=== PATIENT | female | born 1995 | race Caucasian/White ===

== ENCOUNTER 2019-12-20 20:18 | Emergency (ER) | payer SELFPAY ==
[2019-12-20 20:24] VITALS: BP 155/102; PULSE 102; RESP 18; TEMP 36.8; O2SAT 98
--- NOTE | 2019-12-20 20:37 | PC.NURSE ---
patient states she was making a sneeze guard to stand over the desk at work when she accidentally drilled her thumb with and electric drill. Patient is not sure how far in the drill went and patient states she has bled through 8 bandaids in an hour. Patients thumb is not bleeding at this time unless manipulated.
[2019-12-20 20:38] VITALS: BP 133/85; PULSE 97; RESP 16; O2SAT 98
--- NOTE | 2019-12-20 20:44 | XR_ITS ---
WS: [id number] HAND LEFT TECHNIQUE: 3 views of the left hand CLINICAL INFORMATION: puncture wound to left thumb COMPARISON: None. FINDINGS: Normal metacarpals. Normal MCP joint. Metacarpal heads are normal in appearance. Normal PIP and DIP j oints. No evidence of acute fracture or dislocation. Radiocarpal joint: Normal. Carpal bones: Normal. XR/XR hand LT min 3V* [id number] IMPRESSION: Normal left hand.
--- NOTE | 2019-12-20 20:46 | W.ED.WOUNDLC ---
HPI - Wound/Laceration General: Chief Complaint: Wound/Laceration Stated Complaint: thumb lac Time Seen by Provider: 12/20/19 20:24 History of Present Illness: HPI narrative: Patient is a 24-year-old female who comes into the ED with a wound to her left thumb. Injury occurred today while at work. Patient was using a drill and accidentally drilled into her left thumb. She was unaware of how deep the drill went, but did complain of a shooting pain up her hand and into her arm when the incident occurred. She has not had any shooting pain up her left arm since injury. She has used multiple bandages to try to stop the bleeding. She has full movement of her left thumb and just has some tenderness around the wound. She is not taking anything for pain and currently rates the pain about a 5-6 out of 10. She does not want anything for pain while here in the ED. She was on sure of when her last tetanus shot was. Associated symptoms: Denies chills, fever(s), nausea or vomiting Review of Systems Const: Denies: fever, chills or fatigue Eyes: Denies: change in vision or eye discomfort ENMT: Denies: throat pain, painful swallowing, nasal discharge or nasal congestion Card: Denies: chest pain, palpitations, edema, swelling of feet/ankles, shortness of breath on exertion or shortness of breath when lying down Resp: Denies: shortness of breath, productive cough or non-productive cough GI: Denies: abdominal pain, nausea, vomiting, diarrhea, constipation or blood in stool : Denies: flank pain, painful urination or blood in urine Musc: Denies: neck pain, back pain or extremity swelling Skin/Breast: Reports: new lesion (puncture wound to left thumb); Denies: rash Neuro: Denies: headache, numbness in extremities or weakness in extremities PFS ED PFSH: Social History Smoking and tobacco status: never smoked Physical Exam Const: COMMON NORMALS: no apparent distress, oriented x3 and alert GENERAL APPEARANCE: cooperative and comfortable; not in distress HENMT: COMMON NORMALS: normocephalic HEAD & SCALP: normocephalic MOUTH: oral and palatal mucosa normal THROAT: posterior oropharynx normal and uvula midline Neck/C-Spine: COMMON NORMALS: supple GENERAL: Yes normal visual inspection Resp: COMMON NORMALS: normal respiratory effort, no retractions, no use of accessory muscles and clear to auscultation bilaterally AUSCULTATION: clear to auscultation bilaterally Cardio: COMMON NORMALS: regular rate, regular rhythm, S1 normal heart sound, S2 normal heart sound, no gallops, no clicks, no murmurs and peripheral pulses 2+ throughout RATE: regular rate RHYTHM: regular rhythm HEART SOUNDS: S1 normal and S2 normal PERIPHERAL PULSES: pulses 2+ throughout GI: COMMON NORMALS: normal to inspection, nondistended, normoactive bowel sounds, soft to palpation, non-tender and no masses PALPATION: Yes soft : COMMON NORMALS: Yes no CVA tenderness BLADDER/KIDNEY EXAM: Yes no CVA tenderness Back/Pelvis: COMMON NORMALS: no CVA tenderness Extremity: COMMON NORMALS: normal capillary refill GENERAL: Yes normal exam except as noted LEFT UPPER EXTREMITY: Yes hand & digits (3 mm puncture wound on dorsal side of left thumb. Nail is not involved) Left hand and digits: Yes inspection (No erythema, warmth or active bleeding on left thumb wound.), Yes palpation (Tender around puncture wound on left thumb.), Yes ROM (full), Yes neurovascular exam (intact--normal cap refill to left thumb) and Yes tendon exam (full movement) Neuro: COMMON NORMALS: oriented x3 and moves all extremities SENSORIUM/ORIENTATION: Yes alert Skin: TRAUMA: puncture (3 mm puncture wound on the dorsal side of left thumb. No active bleeding no erythema or warmth.) Course Vital Signs: Vital signs: Vital Signs Temperature 98.3 F 12/20/19 20:24 Pulse Rate 84 12/20/19 21:20 Respiratory Rate 16 12/20/19 21:20 Blood Pressure 142/83 12/20/19 21:20 Pulse Oximetry 98 12/20/19 21:20 MDM - Wound/Laceration MDM Narrative: Medical decision making narrative: Patient is a 24-year-old female who comes to the ED with a puncture wound to the left thumb. Left hand x-ray was performed and showed no acute fracture or bony abnormalities. Patient's puncture wound was irrigated and cleansed and then bacitracin and bandage was placed on wound. Patient was given an updated tetanus shot today. She was also given a dose of Augmentin as a prophylactic antibiotic. She was sent home with a prophylactic antibiotic prescription of Augmentin. Patient was told about signs of infection to look for. She was told to clean, apply triple antibiotic ointment and bandage wound daily. She will follow-up with her PCP in 5 to 7 days for reevaluation. Patient understood and agreed with plan. Imaging Data^: Xray Ortho: Attestation: I personally reviewed and interpreted this imaging study as follows: My impression: left hand xray-no acute fractures or kristin abnormalities. pending final radiology report. Discharge Plan Discharge Patient Disposition: Home, Self-Care Clinical Impression: Puncture wound Condition: Stable Prescriptions: New Augmentin 500-125 mg tablet 1 tab PO BID 5 Days Qty: 10 RF: 0 No Action No Known Home Medications RF: 0 Discharge Orders: Discharge Order (Routine); Ordered 12/20/19 Ordered By: Navjot Ely Referrals: Daniel Garza, [Family Provider] - Discharge Diet: Regular Discharge Activity: Resume usual activity Patient Instructions: Puncture Wound (ED) Activity Restrictions/Additional Instructions: Follow-up with PCP in 5 to 7 days for reevaluation. Keep wound clean and bandaged daily. Apply triple antibiotic ointment on wound daily as well. Take full course of antibiotics as prescribed. Watch for any signs of infection such as redness, warmth or drainage around wound. Take Tylenol or ibuprofen for any pain. Discharge Date/Time: 12/20/19 21:22 Coding Level of Care Code ED Shift Supervisor Melting for Yrn Carrera Exam Comprehensive
[2019-12-20] MEDS: tetanus-dipt-pertussis 0.5 mL SDV IM (21:01)
[2019-12-20] MEDS: amoxicillin-clav 500-125 mg Tablet 1 TAB PO (21:06)
[2019-12-20] MEDS: bacitracin ointment Pkt 1 EACH TOPICAL (21:07)
[2019-12-20 21:20] VITALS: BP 142/83; PULSE 84; RESP 16; O2SAT 98
== END 2019-12-20 21:22 | disposition home or self-care (01) ==
PROVIDERS: Emergency Provider Physician Assistant; Family Provider Family Medicine
DX: S61.032A Puncture wound without foreign body of left thumb without damage to nail, initial encounter (principal); W31.89XA Contact with other specified machinery, initial encounter; Z23 Encounter for immunization
CPT/HCPCS: 12345; 73130; 90471; 90715; 99281

== ENCOUNTER → 2019-12-27 10:34 | Outpatient (BNVA) | payer SELFPAY | PROVIDERS: Family Provider Family Medicine; Visit Provider Nurse Practitioner Family | DX: N91.2 Amenorrhea, unspecified (principal); M89.8X1 Other specified disorders of bone, shoulder; M54.6 Pain in thoracic spine; M54.9 Dorsalgia, unspecified; G89.29 Other chronic pain | CPT/HCPCS: 81025 ==

== ENCOUNTER 2020-08-09 11:53 | Outpatient (CLI) | payer SELFPAY ==
--- NOTE | 2020-08-09 11:59 | XR_ITS ---
WS: [id number] THORACIC SPINE TECHNIQUE: 3 views of the thoracic spine CLINICAL INFORMATION: M54.6 - Pain in thoracic spine COMPARISON: None. FINDINGS: Normal thoracic alignment. Vertebral body heights and disc space heights well-preserved. Visualized l ungs are well aerated. No acute appearing compression fractures. XR/XR thoracic spine 3V* [id number] IMPRESSION: Normal thoracic spine.
--- NOTE | 2020-08-09 11:59 | XR_ITS ---
WS: [id number] RIGHT CLAVICLE TECHNIQUE: 2 views of the right clavicle. CLINICAL INFORMATION: M89.8X1 - Other specified disorders of bone, shoulder COMPARISON: None. FINDINGS: Normal AC joint. Right clavicle appears normal. Normal glenohumeral joint. XR/[place] [id number] IMPRESSION: Normal right clavicle.
--- NOTE | 2020-08-09 11:59 | XR_ITS ---
WS: [id number] LEFT CLAVICLE TECHNIQUE: 2 views of the left clavicle. CLINICAL INFORMATION: pain to clavicle COMPARISON: None. FINDINGS: Left clavicle appears normal. No acute fractures. Normal AC joint. Normal glenohumeral joint.. XR/[place] [id number] IMPRESSION: Normal left clavicle.
== END 2020-08-09 11:54 | disposition home or self-care (01) ==
LOC: RADWPI 11:56
PROVIDERS: PCP Nurse Practitioner Family; Visit Provider Nurse Practitioner Family
DX: M89.8X1 Other specified disorders of bone, shoulder (principal); M54.6 Pain in thoracic spine
CPT/HCPCS: 72072; 73000

== ENCOUNTER 2022-09-10 12:54 | Emergency (ER) | payer SELFPAY ==
[2022-09-10 13:06] VITALS: BP 143/95; PULSE 81; RESP 16; TEMP 36.9; O2SAT 97; BMI 34.3
[2022-09-10 13:14] VITALS: BP 143/95; PULSE 88; RESP 17; O2SAT 99
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
[2022-09-10] MEDS: ketorolac 60 mg/2 mL INJ IM (13:50)
[2022-09-10 13:55] VITALS: BP 143/95; PULSE 88; RESP 17; O2SAT 99
== END 2022-09-10 13:56 | disposition home or self-care (01) ==
PROVIDERS: Emergency Provider Nurse Practitioner Family
DX: S46.812A Strain of other muscles, fascia and tendons at shoulder and upper arm level, left arm, initial encounter (principal); X58.XXXA Exposure to other specified factors, initial encounter
CPT/HCPCS: 96372; 99284; J1885

== ENCOUNTER → 2022-11-16 10:01 | Outpatient (BNVA) | payer OTHER, SELFPAY | PROVIDERS: PCP Family Medicine; Visit Provider Family Medicine | DX: O26.90 Pregnancy related conditions, unspecified, unspecified trimester (principal); R30.0 Dysuria; Z3A.00 Weeks of gestation of pregnancy not specified | CPT/HCPCS: 80307; 81000; 81025; 84144; 84443; 84702; 85025; 86592; 86762; 86803; 86850; 86900; 87086; 87340; 87491; 87591; 87624; 87806 ==

== ENCOUNTER 2022-11-23 16:15 | Outpatient (CLI) | payer OTHER, SELFPAY ==
--- NOTE | 2022-11-23 16:15 | US_ITS ---
WS: [id number] EARLY OBSTETRICAL ULTRASOUND (<14 WEEKS). HISTORY: Dating. COMPARISON: None available. Single intrauterine gestational sac is identified. Cardiac activity at 160 BPM. Mayo-rump length miguel ángel sures 1.6 cm which corresponds to a gestation of 8w0d. Normal-appearing yolk sac and amnion demonstra perry. Small subchorionic hemorrhage. Irregular subchorionic hemorrhage to the LEFT of the gestational sac measures 1.3 x 2.5 x 1.2 cm. No free fluid. Normal size ovaries with no mass. Small corpus luteum RIGHT ovary measures 1.6 x 2.3 x 2.5 cm. US/US OB <=14 wk fetus w transvag IMPRESSION: 1. Single intrauterine gestation of 8 weeks 0 days with an EDC of 07/05/2023. 2. Small subchorionic hemorrhage.
== END 2022-11-23 16:16 | disposition home or self-care (01) ==
LOC: RAD 16:17
PROVIDERS: PCP Family Medicine; Visit Provider Family Medicine
DX: Z36.87 Encounter for antenatal screening for uncertain dates (principal); Z3A.08 8 weeks gestation of pregnancy; O46.91 Antepartum hemorrhage, unspecified, first trimester
CPT/HCPCS: 76801; 76817; 80307; 81000; 81025; 84144; 84443; 84702; 85025; 86592; 86762; 86803; 86850; 86900; 87086; 87340; 87491; 87591; 87624; 87806

== ENCOUNTER 2023-01-24 17:30 | Emergency (ER) | payer OTHER, SELFPAY ==
--- NOTE | 2023-01-24 17:32 | XRR_ITS ---
PROCEDURE INFORMATION: Exam: XR Right Ankle Exam date and time: 01/24/2023 6:05 PM Age: 27 years old Clinical indication: Injury or trauma; Fall; Other: Pain; Additional info: Ankle pain TECHNIQUE: Imaging protocol: Radiologic exam of the right ankle. Views: 3 or more views. COMPARISON: No relevant prior studies available. FINDINGS: Bones/joints: Horizontal fracture through the base of the fifth metatarsus consistent with Iverson fracture. Soft tissues: Normal. XR/XR ankle RT min 3V* [id number] IMPRESSION: Horizontal fracture through the base of the fifth metatarsus consistent with Iverson fracture.
[2023-01-24 17:34] VITALS: BP 137/92; PULSE 103; RESP 14; TEMP 37.1; O2SAT 98; BMI 37.8
--- NOTE | 2023-01-24 18:28 | XRR_ITS ---
PROCEDURE INFORMATION: Exam: XR Right Foot Exam date and time: 01/24/2023 6:38 PM Age: 27 years old Clinical indication: Injury or trauma; Fall; Other: Pain TECHNIQUE: Imaging protocol: Radiologic exam of the right foot. Views: 3 or more views. COMPARISON: CR (LOW EXM, ) 01/24/2023 6:05 PM FINDINGS: Bones/joints: Horizontal fracture through the base of the fifth metatarsus consistent with Iverson fracture. Soft tissues: Normal. XR/XR foot RT min 3V* [id number] IMPRESSION: Horizontal fracture through the base of the fifth metatarsus consistent with Iverson fracture.
--- NOTE | 2023-01-24 18:39 | W.ED.EXTPRO ---
HPI - Extremity Problem General: Chief complaint: Extremity Injury, Lower Stated complaint: right ankle pain Time Seen by Provider: 01/24/23 18:17 Source: patient Mode of arrival: ambulatory Limitations: no limitations History of Present Illness: 27-year-old female states that she was walking downstairs states she felt her right ankle pop 3 times roughly 2 hours ago states she has not been able to bear any weight on that ankle since then she rates her pain a 7 out of 10 denies any other injuries stated that is improved with rest. Denies any knee pain. Associated symptoms: Deny chest pain, fever(s) or rash Review of Systems Const: Denies: fever(s), chills, body aches or change in appetite ENMT: Denies: throat pain or dental pain Card: Denies: chest pain Resp: Denies: dyspnea GI: Denies: abdominal pain, nausea or vomiting Musc: Reports: extremity pain; Denies: neck pain or back pain Skin/Breast: Denies: rash Neuro: Denies: headache(s) PFSH ED PFSH: Medical History Back fracture Migraines Surgical History Hx of tonsillectomy Family History Grandmother Cancer, Onset Age: 54 lung COPD (chronic obstructive pulmonary disease) Social History Smoking and tobacco status: current every day smoker e-cigarettes Alcohol intake: never Substance/Drug Use: never 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 Reproductive History: Para: 1 Physical Exam Const: COMMON NORMALS: no acute distress, patient oriented x3 and healthy appearing HENMT: COMMON NORMALS: normocephalic and atraumatic HEAD & SCALP: normocephalic and atraumatic Eye: COMMON NORMALS: conjunctivae normal CONJUNCTIVA: Yes conjunctivae normal Neck/C-Spine: COMMON NORMALS: full ROM and supple Chest: COMMONS NORMALS: normal inspection of the chest Resp: COMMON NORMALS: normal respiratory effort Cardio: COMMON NORMALS: regular rate, regular rhythm and No murmurs present (Cardio) RATE: regular rate RHYTHM: regular rhythm GI: INSPECTION: Yes normal to inspection Extremity: COMMON NORMALS: full ROM NARRATIVE EXTREMITY EXAM: Tenderness noted to right ankle no obvious deformity she is not able to bear weight on that ankle Neuro: COMMON NORMALS: patient oriented x3, moves all extremities and no focal motor deficits Psych: COMMON NORMALS: mental status grossly normal, Normal thought process present and cooperative THOUGHT PROCESS: Normal thought process present Skin: COMMON NORMALS: no rashes or lesions noted and no wounds GENERAL SKIN EXAM: no rashes or lesions noted Course Vital Signs: Vital signs: Vital Signs Temperature 98.7 F 01/24/23 17:34 Pulse Rate 103 H 01/24/23 17:34 Respiratory Rate 14 01/24/23 17:34 Blood Pressure 137/92 01/24/23 17:34 Pulse Oximetry 98 01/24/23 17:34 Oxygen Delivery Me thod Room Air 01/24/23 17:34 MDM - Extremity (Nontraumatic) Medical Decision Making Patient presents with 1/5 metatarsal fracture she is well-appearing here we will place her in a splint along with crutches she is stable for discharge at this time we will get her follow-up with podiatry she is return if worsening. Medical Records I reviewed the patient's medical records. Imaging Data xr right foot: I personally reviewed and interpreted this imaging study as follows: My impression: fifth metatarsal fracture Discharge Plan Discharge Patient Disposition: Home Clinical Impression: Closed fracture of fifth metatarsal bone Condition: Stable Prescriptions: No Action prenat.vits,santosh,[id number]-wjdo-tbtcp Tablet 1 tab PO DAILY Discharge Orders: Discharge ED (Routine); Ordered 01/24/23 Ordered By: Doc Coronado Referrals: Justo Barrera DPM [Physician] - 1-3 days Navjot Johnson MD [Primary Care Provider] - Discharge Diet: Advance as tolerated Discharge Activity: Limit activity as instructed Patient Instructions: Foot Fracture in Adults (ED) Coding Level of Care Code ED Vacuum Cleaner Repair Person for Yrn Carrera
--- NOTE | 2023-01-24 18:51 | PC.NURSE ---
REPORT GIVEN TO [facility] ASSUMED CARE.
[2023-01-24] MEDS: acetaminophen 325 mg Tablet 650 MG PO (18:54)
[2023-01-24 19:15] VITALS: BP 134/77; PULSE 94; RESP 16; O2SAT 98
--- NOTE | 2023-01-25 08:21 | DCPLANNER ---
Addendum entered by Venice Savage 01/28/23 13:50: Patient had a follow up appointment scheduled with ortho - patient did attend appointment. Original Note: cafe or restaurant manager had message to schedule a follow up appointment for patient with podiatry. cafe or restaurant manager sent patients information to the front office staff at podiatry. Patients information will be printed and reviewed. Clinic will call patient with appointment information.
== END 2023-01-24 19:18 | disposition home or self-care (01) ==
PROVIDERS: Emergency Provider Emergency Medicine; PCP Family Medicine
DX: S92.351A Displaced fracture of fifth metatarsal bone, right foot, initial encounter for closed fracture (principal); X58.XXXA Exposure to other specified factors, initial encounter
CPT/HCPCS: 29515; 73610; 73630; 99283

== ENCOUNTER → 2023-01-28 12:30 | Outpatient (BNVA) | payer OTHER, SELFPAY | PROVIDERS: PCP Family Medicine; Visit Provider Family Medicine | DX: I10 Essential (primary) hypertension (principal) | CPT/HCPCS: 84156 ==

== ENCOUNTER 2023-01-29 14:05 | Emergency (ER) | payer OTHER, SELFPAY ==
[2023-01-29 14:17] VITALS: BP 152/97; PULSE 95; RESP 16; TEMP 36.6; O2SAT 99
--- NOTE | 2023-01-29 14:51 | USR_ITS ---
PROCEDURE INFORMATION: Exam: US , Limited Exam date and time: 01/29/2023 4:02 PM Age: 27 years old Clinical indication: complicated by abdominal or pelvic pain; Right lower quadrant; Second trimester (14 weeks 0 days to 27 weeks 6 days); Gestational age or lmp: 18 weeks 1 day; ; Additional info: Right lower pelvic pain, 18wks preg LABS AND CLINICAL REPORTS: Last menstrual period start date: 09/28/2022 Gestational age (Established): 17 w 4 d Estimated due date (Established): 07/05/2023 TECHNIQUE: Imaging protocol: Real-time ultrasound of the maternal uterus with image documentation. Exam focused on the clinical indication. COMPARISON: US OB <=14 wk fetus w transvag 11/23/2022 4:43 PM FINDINGS: Gestation: Intrauterine gestation. heart rate: 150 bpm Placenta: Anterior placenta. No previa. Amniotic fluid index: MIGUEL is 12.2 cm. BIOMETRY: Gestational age (AUA): 18 w 1 d Estimated weight: 229 g Biparietal diameter (BPD): 4.1 cm. EGA (BPD) is 18 w 2 d Head circumference (HC): 14.7 cm. EGA (HC) is 17 w 6 d Abdominal circumference (AC): 12.6 cm. EGA (AC) is 18 w 2 d Femur length (FL): 2.7 cm. EGA (FL) is 18 w 2 d Cephalic Index (CI): 77.7 % HC/AC: 1.16 FL/HC: 18.3 % FL/AC: 21.3 % MATERNAL: Cervix: Cervical length measures 5.1 cm. US/US OB limited [id number] IMPRESSION: Live intrauterine gestation.
--- NOTE | 2023-01-29 14:52 | W.ED.BACK ---
Documented by User: FERNANDO Moore 01/30/23 07:07 HPI - Back Pain/Injury General: Chief Complaint: Back Pain/Injury Stated Complaint: 18 weeks, pain right side slightly into stomach Time Seen by Provider: 01/29/23 14:27 History of Present Illness: Patient is 18 weeks 27-year-old female who comes to the ED with right flank pain. Patient denies any complications with this . Flank pain started approximately 2 hours ago and was a sudden and severe onset of pain. She rates the pain currently a 10 out of 10. Pain is located in the right flank and radiates down into her right lower pelvis. She also describes feeling some pressure down by her vagina. Denies any vaginal bleeding or vaginal discharge. Endorses nausea and vomiting since onset of pain. Patient says she feels like she needs to urinate but is unable to. She is having normal daily bowel movements. Denies any fevers, dysuria or hematuria. Associated symptoms: Reports nausea and vomiting; Deny abdominal pain, chills, dysuria, fatigue, fever(s) or hematuria Review of Systems Const: Denies: fever(s), chills or fatigue Eyes: Denies: change in vision or eye discomfort ENMT: Denies: throat pain, odynophagia, nasal discharge or nasal congestion Card: Denies: chest pain, palpitations, edema, swelling of feet/ankles, dyspnea on exertion or orthopnea Resp: Denies: dyspnea, productive cough or non-productive cough GI: Reports: nausea and vomiting; Denies: abdominal pain, diarrhea, constipation or hematochezia : Reports: flank pain (Right flank) and pelvic pain (Right pelvic pain); Denies: dysuria or hematuria Musc: Denies: neck pain, back pain or extremity swelling Skin/Breast: Denies: rash or new lesions Neuro: Denies: headache(s), numbness in extremities or weakness in extremities PFSH ED PFSH: Medical History Back fracture Migraines Surgical History Hx of tonsillectomy Family History Grandmother Cancer, Onset Age: 54 lung COPD (chronic obstructive pulmonary disease) Social History Smoking and tobacco status: current every day smoker e-cigarettes Alcohol intake: never Substance/Drug Use: never 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 Reproductive History: Para: 1 Physical Exam Const: COMMON NORMALS: patient oriented x3 HENMT: COMMON NORMALS: normocephalic HEAD & SCALP: normocephalic MOUTH: Normal oral and palatal mucosa present THROAT: posterior oropharynx normal and uvula midline Neck/C-Spine: COMMON NORMALS: supple GENERAL: Yes normal visual inspection Resp: COMMON NORMALS: normal respiratory effort, No retractions, No use of accessory muscles and clear to auscultation bilaterally AUSCULTATION: clear to auscultation bilaterally Cardio: COMMON NORMALS: regular rate, regular rhythm, S1 normal heart sound present, S2 normal heart sound present, No gallops present (Cardio), No clicks present (Cardio), No murmurs present (Cardio) and Peripheral pulses 2+ throughout RATE: regular rate RHYTHM: regular rhythm HEART SOUNDS: S1 normal heart sound present and S2 normal heart sound present PERIPHERAL PULSES: Peripheral pulses 2+ throughout GI: COMMON NORMALS: Normal to inspection, nondistended, normoactive bowel sounds present, Soft to palpation, non-tender and no masses PALPATION: Yes Soft to palpation : BLADDER/KIDNEY EXAM: Yes CVA tenderness Back/Pelvis: GENERAL BACK: Yes CVA tenderness CVA tenderness: right Extremity: COMMON NORMALS: normal to inspection Neuro: COMMON NORMALS: patient oriented x3 GAIT: Yes Normal gait present Skin: GENERAL SKIN EXAM: dry skin Course Vital Signs: Vital signs: Vital Signs Temperature 97.9 F 01/29/23 14:17 Pulse Rate 80 01/29/23 18:39 Respiratory Rate 18 01/29/23 18:39 Blood Pressure 133/74 01/29/23 18:39 Pulse Oximetry 98 01/29/23 18:39 Oxygen Delivery Me thod Room Air 01/29/23 14:17 MDM - Back Pain/Injury Labs I reviewed the patient's lab results. 01/29/23 15:10 01/29/23 15:10 Radiology Impressions Obstetrics Ultrasound 01/29/23 14:51 IMPRESSION: Live intrauterine gestation. Renal Ultrasound 01/29/23 16:02 IMPRESSION: Mild pelvocaliectasis without mark hydronephrosis of the right kidney. Otherwise, unremarkable ultrasound of the kidneys and bladder. Laboratory Results WBC 11.2 10^3/uL (4.0-10.0) H 01/29/23 15:10 RBC 4.54 10^6/uL (4.1-5.3) 01/29/23 15:10 Hgb 12.2 g/dL (11.5-15.3) 01/29/23 15:10 Hct 37.3 % (37.0-47.0) 01/29/23 15:10 MCV 82.2 fl (81-99) 01/29/23 15:10 MCH 26.9 pg (28.0-34.0) L 01/29/23 15:10 MCHC 32.7 g/dL (30.0-36.0) 01/29/23 15:10 RDW 13.2 % (12.1-15.1) 01/29/23 15:10 Plt Count 211 10^3/cmm (130-400) 01/29/23 15:10 MPV 10.3 fL (7.4-10.4) 01/29/23 15:10 Neut % (Auto) 78.3 % 01/29/23 15:10 Lymph % (Auto) 13.9 % 01/29/23 15:10 [place] % (Auto) 3.2 % 01/29/23 15:10 Eos % (Auto) 0.2 % 01/29/23 15:10 Baso % (Auto) 0.4 % 01/29/23 15:10 Neut # (Auto) 8.80 10^3/uL (1.8-7.7) H 01/29/23 15:10 Lymph # (Auto) 1.6 10^3/uL (0.8-4.8) 01/29/23 15:10 [place] # (Auto) 0.4 10^3/uL (0.2-0.9) 01/29/23 15:10 Eos # (Auto) 0.0 10^3/uL (0.0-0.8) 01/29/23 15:10 Baso # (Auto) 0.1 10^3/uL (0.0-0.1) 01/29/23 15:10 Nucleated RBC % (auto) 0 % 01/29/23 15:10 Nucleated RBCs # 0.0 /100WBC 01/29/23 15:10 Sodium 136 mmol/L (136-145) 01/29/23 15:10 Potassium 3.7 mmol/L (3.5-5.1) 01/29/23 15:10 Chloride 101 mmol/L (98-107) 01/29/23 15:10 Carbon Dioxide 20 mmol/L (22-29) L 01/29/23 15:10 Anion Gap 18.7 (5-19) 01/29/23 15:10 BUN 8 mg/dL (6-20) 01/29/23 15:10 Creatinine 0.4 mg/dL (0.5-0.9) L 01/29/23 15:10 GFR Calculation 191.5 mL/min (90-130) H 01/29/23 15:10 Glucose 106 mg/dL (65-115) 01/29/23 15:10 Calculated Osmolality 281 mOsm/kg (285-295) L 01/29/23 15:10 Calcium 9.8 mg/dL (8.5-10.5) 01/29/23 15:10 Total Bilirubin 0.2 mg/dL (0.15-1.2) 01/29/23 15:10 AST 13 U/L (0-32) 01/29/23 15:10 ALT 14 U/L (0-33) 01/29/23 15:10 Alkaline Phosphatase 64 U/L (35-105) 01/29/23 15:10 Total Protein 7.1 g/dL (6.6-8.7) 01/29/23 15:10 Albumin 4.1 g/dL (3.5-5.2) 01/29/23 15:10 Globulin 3.0 g/dL (1.3-4.6) 01/29/23 15:10 Lipase 16 U/L (13-60) 01/29/23 15:10 Urine Color Yellow (Yellow) 01/29/23 15:10 Urine Appearance Cloudy (CLEAR) A 01/29/23 15:10 Urine pH 5 (5-7) 01/29/23 15:10 Ur Specific [place] 1.030 (1.005-1.030) 01/29/23 15:10 Urine Protein Trace (Negative) 01/29/23 15:10 Urine Glucose (UA) Norm (Normal) 01/29/23 15:10 Urine Ketones 1+ (Negative) H 01/29/23 15:10 Urine Blood 3+ (Negative) H 01/29/23 15:10 Urine Nitrate Negative (Negative) 01/29/23 15:10 Urine Bilirubin Neg (Negative) 01/29/23 15:10 Urine Urobilinogen Norm mg/dL (Negative) 01/29/23 15:10 Ur Leukocyte Esterase 1+ (Negative) H 01/29/23 15:10 Urine RBC 10-15 /hpf (0-2) H 01/29/23 15:10 Urine WBC 5-10 /hpf (0-5) H 01/29/23 15:10 Ur Squamous Epith Cells 80-100 /hpf (0-5) H 01/29/23 15:10 Amorphous Sediment Not Reportable 01/29/23 15:10 Urine Bacteria 1+ /hpf (NONE) H 01/29/23 15:10 Discharge Plan Discharge Patient Disposition: Home Clinical Impression: Rt flank pain, Hematuria Condition: Stable Prescriptions: New tamsulosin 0.4 mg capsule 0.4 mg PO DAILY Qty: 3 0RF ondansetron 4 mg tablet,disintegrating 4 mg PO Q8H 5 Days Qty: 15 0RF No Action prenat.vits,santosh,uqt-bnkd-vgaps Tablet 1 tab PO DAILY aspirin [Adult Aspirin Regimen] 81 mg tablet,delayed release (DR/EC) 81 mg PO DAILY Discharge Orders: Discharge ED (Routine); Ordered 01/29/23 Ordered By: Vannesa Graham Referrals: Navjot Johnson MD [Primary Care Provider] - Discharge Diet: Usual diet Discharge Activity: Increase activity as tolerated Patient Instructions: Kidney Stones (ED), Ureteral Stones (ED) Activity Restrictions/Additional Instructions: Evaluation today is suspicious for recently passed kidney stone. The imaging today showed no signs of any retained stone in your urinary system however, there appeared to be side effects secondary to having recently had 1. As we discussed, you may still have pain as a residual effect of having passed a stone. I encourage you to use Tylenol every 6 hours-even if you are starting to feel better, consistently for the next 48 to 72 hours. The medication as it will be extremely important that you drink lots of fluids. You are getting a 3-day course of medication that also helps the urinary system stay flushed. I have requested a follow-up appoint with urology given that you are and this is the first time this has occurred. However, in the meantime, we would like you to be seen by your primary care or IMPROVEMENT LEAD on Wednesday or Wednesday for a general recheck. If you have any new onset of fever, inability to tolerate fluids, or intolerable pain you should be seen and reevaluated back here in the ER. Coding Level of Care Code ED Commercial Mortgage Broker for Chg Fwd Documented by User: FERNANDO Cuevas 01/29/23 18:14 HPI - Back Pain/Injury General: Chief Complaint: Back Pain/Injury Stated Complaint: 18 weeks, pain right side slightly into stomach Time Seen by Provider: 01/29/23 14:27 PFSH ED PFSH: Medical History Back fracture Migraines Surgical History Hx of tonsillectomy Family History Grandmother Cancer, Onset Age: 54 lung COPD (chronic obstructive pulmonary disease) Social History Smoking and tobacco status: current every day smoker e-cigarettes Alcohol intake: never Substance/Drug Use: never 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 At that time, patient was receiving an ultrasound of her kidneys and urinary system. Ultrasound came back showing no signs of any active retained stone but, there is a minimal amount of hydronephrosis on the right and some renal pelvis and urinary dilatation. With the 3+ blood and patient's right flank pain, we are suspicious that the patient has recently passed a kidney stone. I did speak with Dr. Lopez regarding the patient's evaluation here. We discussed a 3-day course of Flomax- category B according to up-to-date, continued use of Tylenol, and antinausea medication. We did request a follow-up with urology through rifle case repairer on her behalf but, requested a follow-up appoint with primary care Wednesday or Wednesday. We discussed strict return precautions for fevers, vomiting, or worsening pain. Patient verbalized understanding and agreement to treatment plan. Differential Diagnosis Likely lumbar radiculopathy, strain of lumbar region, renal colic and pyelonephritis Labs 01/29/23 15:10 01/29/23 15:10 Radiology Impressions Obstetrics Ultrasound 01/29/23 14:51 IMPRESSION: Live intrauterine gestation. Renal Ultrasound 01/29/23 16:02 IMPRESSION: Mild pelvocaliectasis without mark hydronephrosis of the right kidney. Otherwise, unremarkable ultrasound of the kidneys and bladder. Laboratory Results WBC 11.2 10^3/uL (4.0-10.0) H 01/29/23 15:10 RBC 4.54 10^6/uL (4.1-5.3) 01/29/23 15:10 Hgb 12.2 g/dL (11.5-15.3) 01/29/23 15:10 Hct 37.3 % (37.0-47.0) 01/29/23 15:10 MCV 82.2 fl (81-99) 01/29/23 15:10 MCH 26.9 pg (28.0-34.0) L 01/29/23 15:10 MCHC 32.7 g/dL (30.0-36.0) 01/29/23 15:10 RDW 13.2 % (12.1-15.1) 01/29/23 15:10 Plt Count 211 10^3/cmm (130-400) 01/29/23 15:10 MPV 10.3 fL (7.4-10.4) 01/29/23 15:10 Neut % (Auto) 78.3 % 01/29/23 15:10 Lymph % (Auto) 13.9 % 01/29/23 15:10 [place] % (Auto) 3.2 % 01/29/23 15:10 Eos % (Auto) 0.2 % 01/29/23 15:10 Baso % (Auto) 0.4 % 01/29/23 15:10 Neut # (Auto) 8.80 10^3/uL (1.8-7.7) H 01/29/23 15:10 Lymph # (Auto) 1.6 10^3/uL (0.8-4.8) 01/29/23 15:10 [place] # (Auto) 0.4 10^3/uL (0.2-0.9) 01/29/23 15:10 Eos # (Auto) 0.0 10^3/uL (0.0-0.8) 01/29/23 15:10 Baso # (Auto) 0.1 10^3/uL (0.0-0.1) 01/29/23 15:10 Nucleated RBC % (auto) 0 % 01/29/23 15:10 Nucleated RBCs # 0.0 /100WBC 01/29/23 15:10 Sodium 136 mmol/L (136-145) 01/29/23 15:10 Potassium 3.7 mmol/L (3.5-5.1) 01/29/23 15:10 Chloride 101 mmol/L (98-107) 01/29/23 15:10 Carbon Dioxide 20 mmol/L (22-29) L 01/29/23 15:10 Anion Gap 18.7 (5-19) 01/29/23 15:10 BUN 8 mg/dL (6-20) 01/29/23 15:10 Creatinine 0.4 mg/dL (0.5-0.9) L 01/29/23 15:10 GFR Calculation 191.5 mL/min (90-130) H 01/29/23 15:10 Glucose 106 mg/dL (65-115) 01/29/23 15:10 Calculated Osmolality 281 mOsm/kg (285-295) L 01/29/23 15:10 Calcium 9.8 mg/dL (8.5-10.5) 01/29/23 15:10 Total Bilirubin 0.2 mg/dL (0.15-1.2) 01/29/23 15:10 AST 13 U/L (0-32) 01/29/23 15:10 ALT 14 U/L (0-33) 01/29/23 15:10 Alkaline Phosphatase 64 U/L (35-105) 01/29/23 15:10 Total Protein 7.1 g/dL (6.6-8.7) 01/29/23 15:10 Albumin 4.1 g/dL (3.5-5.2) 01/29/23 15:10 Globulin 3.0 g/dL (1.3-4.6) 01/29/23 15:10 Lipase 16 U/L (13-60) 01/29/23 15:10 Urine Color Yellow (Yellow) 01/29/23 15:10 Urine Appearance Cloudy (CLEAR) A 01/29/23 15:10 Urine pH 5 (5-7) 01/29/23 15:10 Ur Specific [place] 1.030 (1.005-1.030) 01/29/23 15:10 Urine Protein Trace (Negative) 01/29/23 15:10 Urine Glucose (UA) Norm (Normal) 01/29/23 15:10 Urine Ketones 1+ (Negative) H 01/29/23 15:10 Urine Blood 3+ (Negative) H 01/29/23 15:10 Urine Nitrate Negative (Negative) 01/29/23 15:10 Urine Bilirubin Neg (Negative) 01/29/23 15:10 Urine Urobilinogen Norm mg/dL (Negative) 01/29/23 15:10 Ur Leukocyte Esterase 1+ (Negative) H 01/29/23 15:10 Urine RBC 10-15 /hpf (0-2) H 01/29/23 15:10 Urine WBC 5-10 /hpf (0-5) H 01/29/23 15:10 Ur Squamous Epith Cells 80-100 /hpf (0-5) H 01/29/23 15:10 Amorphous Sediment Not Reportable 01/29/23 15:10 Urine Bacteria 1+ /hpf (NONE) H 01/29/23 15:10 Discharge Plan Discharge Patient Disposition: Home Clinical Impression: Rt flank pain, Hematuria Condition: Stable Prescriptions: New tamsulosin 0.4 mg capsule 0.4 mg PO DAILY Qty: 3 0RF ondansetron 4 mg tablet,disintegrating 4 mg PO Q8H 5 Days Qty: 15 0RF No Action prenat.vits,santosh,sad-mhfm-hhkzp Tablet 1 tab PO DAILY aspirin [Adult Aspirin Regimen] 81 mg tablet,delayed release (DR/EC) 81 mg PO DAILY Discharge Orders: Discharge ED (Routine); Ordered 01/29/23 Ordered By: Vannesa Graham Referrals: Navjot Johnson MD [Primary Care Provider] - Discharge Diet: Usual diet Discharge Activity: Increase activity as tolerated Patient Instructions: Kidney Stones (ED), Ureteral Stones (ED) Activity Restrictions/Additional Instructions: Evaluation today is suspicious for recently passed kidney stone. The imaging today showed no signs of any retained stone in your urinary system however, there appeared to be side effects secondary to having recently had 1. As we discussed, you may still have pain as a residual effect of having passed a stone. I encourage you to use Tylenol every 6 hours-even if you are starting to feel better, consistently for the next 48 to 72 hours. The medication as it will be extremely important that you drink lots of fluids. You are getting a 3-day course of medication that also helps the urinary system stay flushed. I have requested a follow-up appoint with urology given that you are and this is the first time this has occurred. However, in the meantime, we would like you to be seen by your primary care or IMPROVEMENT LEAD on Wednesday or Wednesday for a general recheck. If you have any new onset of fever, inability to tolerate fluids, or intolerable pain you should be seen and reevaluated back here in the ER. Coding Level of Care Code ED Commercial Mortgage Broker for Yrn Carrera
[2023-01-29 15:10] VITALS: RESP 18; O2SAT 99
[2023-01-29] MEDS: ondansetron 2 mg/ML SDV 2 mL 4 MG IVP (15:10)
[2023-01-29] MEDS: morphine 4 mg/mL SDV 1 mL IVP ×2 (15:10→18:29)
[2023-01-29 15:23] LABS: Basophils # 0.1 10^3/uL (0.0-0.1); Basophils % 0.4 %; Eosinophils % 0.2 %; Hematocrit 37.3 % (37.0-47.0); Hemoglobin 12.2 g/dL (11.5-15.3); Lymphocytes # 1.6 10^3/uL (0.8-4.8); Lymphocytes % 13.9 %; Mean Corpuscular HGB Conc 32.7 g/dL (30.0-36.0); Mean Corpuscular Hemoglobin 26.9 pg (28.0-34.0); Mean Corpuscular Volume 82.2 fl (81-99); Mean Platelet Volume 10.3 fL (7.4-10.4); Monocytes # 0.4 10^3/uL (0.2-0.9); Monocytes % 3.2 %; Neutrophils % 78.3 %; Nucleated Red Blood Cells % 0 %; Platelet Count 211 10^3/cmm (130-400); Red Blood Count 4.54 10^6/uL (4.1-5.3); Red Cell Distribution Width 13.2 % (12.1-15.1); White Blood Count 11.2 10^3/uL (4.0-10.0)
[2023-01-29 15:43] LABS: Add Urine Microscopic? YES; Bilirubin Urine Neg (Negative); Blood Urine 3+ (Negative); Glucose Urine UA Norm (Normal); Ketones Urine 1+ (Negative); Leukocyte Esterase Urine 1+ (Negative); Nitrate Urine Negative (Negative); Protein Urine Trace (Negative); Urine Appearance Cloudy (CLEAR); Urine Color Yellow (Yellow); Urobilinogen Urine Norm (Negative); pH Urine 5 (5-7)
[2023-01-29 15:44] LABS: Add Urine Culture? No; Bacteria Urine 1+ /hpf; Squamous Epithelial Cell Urine 80-100 /hpf (0-5)
[2023-01-29 15:45] LABS: Alanine Aminotransferase 14 U/L (0-33); Albumin Level 4.1 g/dL (3.5-5.2); Alkaline Phosphatase 64 U/L (35-105); Anion Gap 18.7 (5-19); Aspartate Amino Transferase 13 U/L (0-32); Blood Urea Nitrogen 8 mg/dL (6-20); Calcium 9.8 mg/dL (8.5-10.5); Carbon Dioxide 20 mmol/L (22-29); Chloride 101 mmol/L (98-107); Glomerular Filtration Rate 191.5 mL/min (90-130); Glucose 106 mg/dL (65-115); Lipase 16 U/L (13-60); Osmolality Calculated 281 mOsm/kg (285-295); Potassium 3.7 mmol/L (3.5-5.1); Sodium 136 mmol/L (136-145); Total Bilirubin 0.2 mg/dL (0.15-1.2); Total Protein 7.1 g/dL (6.6-8.7)
--- NOTE | 2023-01-29 16:02 | USR_ITS ---
PROCEDURE INFORMATION: Exam: US Retroperitoneal; Complete; Kidneys and Bladder Exam date and time: 01/29/2023 4:57 PM Age: 27 years old Clinical indication: Other: Pain hip area; ; Additional info: Right flank pain, scan right kidney suspicious for kidney stone TECHNIQUE: Imaging protocol: Real-time ultrasound of the retroperitoneum with image documentation. Complete exam focused on the kidneys and bladder. COMPARISON: US OB limited [id number] 01/29/2023 4:02 PM FINDINGS: Right kidney: The right kidney measures 13.8 cm in length. No stones. Mild pelvocaliectasis without mark hydronephrosis. Left kidney: The left kidney measures 12.5 cm in length. No stones. No hydronephrosis. Urinary bladder: Under distended bladder. US/US renal BI* [id number] IMPRESSION: Mild pelvocaliectasis without mark hydronephrosis of the right kidney. Otherwise, unremarkable ultrasound of the kidneys and bladder.
[2023-01-29] MEDS: metoclopramide 5 mg/mL SDV 2 mL 10 MG IVP (16:24)
[2023-01-29] MEDS: acetaminophen 1,000 MG/100 ML PIGGYBACK 400 MG IV (16:39)
[2023-01-29 18:29] VITALS: RESP 18; O2SAT 98
[2023-01-29 18:39] VITALS: BP 133/74; PULSE 80; RESP 18; O2SAT 98
--- NOTE | 2023-02-01 08:31 | DCPLANNER ---
Addendum entered by Venice Savage 02/11/23 10:13: fitness manager called [facility] to confirm that patients information had been received, case sealer was told that clinic had received patients information, it will be reviewed, clinic will call patient with appointment information. Original Note: fitness manager had message to schedule a follow up appointment for patient with urology. fitness manager sent patients information to the front office staff at urology. Patients information will be printed and reviewed. Clinic will call patient with appointment information.
== END 2023-01-29 18:44 | disposition home or self-care (01) ==
PROVIDERS: Physician Assistant; Emergency Provider Physician Assistant; PCP Family Medicine
DX: O26.892 Other specified pregnancy related conditions, second trimester (principal); R10.9 Unspecified abdominal pain; R31.9 Hematuria, unspecified
CPT/HCPCS: 76770; 76815; 80053; 81000; 81001; 83690; 85025; 96374; 96375; 96376; 99285; J0131; J2270; J2405; J2765

== ENCOUNTER → 2023-02-10 14:47 | Outpatient (BNVA) | payer OTHER, SELFPAY | PROVIDERS: PCP Family Medicine; Visit Provider Podiatrist Foot & Ankle Surgery | DX: S92.524D Nondisplaced fracture of middle phalanx of right lesser toe(s), subsequent encounter for fracture with routine healing (principal); X58.XXXD Exposure to other specified factors, subsequent encounter | CPT/HCPCS: 73630 ==

== ENCOUNTER 2023-02-10 15:48 | Outpatient (CLI) | payer OTHER, SELFPAY | END 2023-02-10 15:49 | disposition home or self-care (01) | LOC: SPT 15:51 | PROVIDERS: PCP Family Medicine; Visit Provider Podiatrist Foot & Ankle Surgery | DX: Z46.89 Encounter for fitting and adjustment of other specified devices (principal); M79.671 Pain in right foot | CPT/HCPCS: 97760; L4361 ==

== ENCOUNTER 2023-02-15 08:19 | Outpatient (CLI) | payer OTHER, SELFPAY ==
--- NOTE | 2023-02-15 08:45 | US_ITS ---
WS: [id number] OBSTETRICAL ULTRASOUND COMPLETE HISTORY: Anatomy US COMPARISON: 11/23/2022 and 01/29/2023 Single intrauterine gestation in breech presentation. Cervix is Closed and normal length. Cervical length is 4.5 cm. Normal amount of amniotic fluid surrounds the fetus. Placenta: Anterior, no previa or abruption. Placenta grade 1 Heart: 160 BPM. 4 chamber heart poorly visualized. Outflow tracts are not visualized. Anatomy: Intracranial structures are normal. Limited spine. kidneys, stomach and urinary bladder are unremarkable. Abdominal wall, three-vessel cord and cord insertion site are normal. 4 extremities are present. profile: Unremarkable. Gender: Female measurements: BPD = 4.7 cm = 20w1d; HC = 17.5 cm = 20w0d; AC = 14.4 cm = 19w5d; FL = 3.2 cm = 20w0d; EFW: 319 g. Biometry is internally concordant. AGA by ultrasound: 20w0d LUISANA by ultrasound: 07/05/2023 US/US OB >= 14 weeks fetus [id number] IMPRESSION: 1. Single intrauterine gestation of 20w0d with an LUISANA of 07/05/2023. Appropria te growth since the first trimester ultrasound. 2. Due to position and maternal body habitus adequate evaluation of the heart and spine are limited. Recommend follow-up. The remaining anatomy i s negative.
== END 2023-02-15 08:20 | disposition home or self-care (01) ==
PROVIDERS: PCP Family Medicine; Visit Provider Family Medicine
DX: Z34.82 Encounter for supervision of other normal pregnancy, second trimester (principal); Z3A.20 20 weeks gestation of pregnancy
CPT/HCPCS: 76805

== ENCOUNTER → 2023-03-04 08:08 | Outpatient (BNVA) | payer OTHER, SELFPAY | PROVIDERS: PCP Family Medicine; Visit Provider Podiatrist Foot & Ankle Surgery | DX: S92.524A Nondisplaced fracture of middle phalanx of right lesser toe(s), initial encounter for closed fracture (principal); X58.XXXA Exposure to other specified factors, initial encounter | CPT/HCPCS: 73630 ==

== ENCOUNTER 2023-03-09 07:54 | Outpatient (CLI) | payer OTHER, SELFPAY ==
--- NOTE | 2023-03-09 08:00 | USR_ITS ---
PROCEDURE INFORMATION: Exam: US , Limited Exam date and time: 03/09/2023 8:41 AM Age: 27 years old Clinical indication: Screening exam; Routine US, uterus; Additional info: Repeat heart and spine in next 2-3 weeks LABS AND CLINICAL REPORTS: Last menstrual period start date: 09/28/2022 Gestational age (Established): 23 w 1 d Estimated due date (Established): 07/05/2023 TECHNIQUE: Imaging protocol: Real-time ultrasound of the maternal uterus with image documentation. Exam focused on the clinical indication. COMPARISON: US OB >= 14 weeks fetus [id number] 02/15/2023 9:20 AM FINDINGS: Gestation: Single living intrauterine fetus. heart rate: 147 beats per minute. presentation: Breech position. Placenta: Anterior grade 1 placenta, no previa. Amniotic fluid: Amniotic fluid is normal for gestational age. ANATOMY: right ventricular outflow tract: Normal. left ventricular outflow tract: Normal. heart: 4 chambered cardiac anatomy imaging reportedly difficult due to positioning, appearing incidentally imaged on images 36 and 37. spine: Normal appearance of the spine. MATERNAL: Cervix: Cervical length measures 4.8 cm. The cervical length is 4.81 cm. Closed. US/US OB limited [id number] IMPRESSION: 1. Single living intrauterine fetus. 2. Normal thoracic spine and cardiac ventricular outflow tracts. 3. Apparent 4 chambered cardiac anatomy, additional follow-up may be helpful.
== END 2023-03-09 07:55 | disposition home or self-care (01) ==
LOC: RAD 07:55
PROVIDERS: PCP Family Medicine; Visit Provider Family Medicine
DX: Z34.80 Encounter for supervision of other normal pregnancy, unspecified trimester (principal)
CPT/HCPCS: 76815

== ENCOUNTER → 2023-03-30 10:01 | Outpatient (BNVA) | payer OTHER, SELFPAY | PROVIDERS: PCP Family Medicine; Visit Provider Family Medicine | DX: Z34.80 Encounter for supervision of other normal pregnancy, unspecified trimester (principal); R25.2 Cramp and spasm | CPT/HCPCS: 82950; 83735; 84132 ==

== ENCOUNTER 2023-04-08 07:15 | Outpatient (CLI) | payer OTHER, SELFPAY ==
--- NOTE | 2023-04-08 07:15 | US_ITS ---
WS: [id number] ULTRASOUND OB FOCUSED HISTORY: Follow up on 4 chambered heart US COMPARISON: 03/09/2023 Fetus in breech position. heart rate at 144 BPM. Additional imaging of the heart demonstrates 4 chambers. The valve plane is normal. Appropriate appea nancy of the 4 chambers. IMPRESSION: Normal four-chamber heart.
== END 2023-04-08 07:16 | disposition home or self-care (01) ==
PROVIDERS: PCP Family Medicine; Visit Provider Family Medicine
DX: Z34.80 Encounter for supervision of other normal pregnancy, unspecified trimester (principal)
CPT/HCPCS: 76815; 82950; 83735; 84132

== ENCOUNTER → 2023-05-13 12:02 | Outpatient (BNVA) | payer OTHER, SELFPAY | PROVIDERS: PCP Family Medicine; Visit Provider Family Medicine | DX: R25.2 Cramp and spasm (principal); Z51.81 Encounter for therapeutic drug level monitoring | CPT/HCPCS: 83735; 84132; 85007; 85025 ==

== ENCOUNTER → 2023-06-11 08:35 | Outpatient (BNVA) | payer OTHER, SELFPAY | PROVIDERS: PCP Family Medicine; Visit Provider Family Medicine | DX: R25.2 Cramp and spasm (principal); Z34.80 Encounter for supervision of other normal pregnancy, unspecified trimester; Z51.81 Encounter for therapeutic drug level monitoring | CPT/HCPCS: 83735; 84132; 85025; 87081 ==

== ENCOUNTER → 2023-06-25 09:42 | Outpatient (BNVA) | payer OTHER, SELFPAY | PROVIDERS: PCP Family Medicine; Visit Provider Family Medicine | DX: Z34.80 Encounter for supervision of other normal pregnancy, unspecified trimester (principal); R03.0 Elevated blood-pressure reading, without diagnosis of hypertension; R25.2 Cramp and spasm; Z51.81 Encounter for therapeutic drug level monitoring | CPT/HCPCS: 80053; 82570; 83735; 84156; 84550; 85025 ==

== ENCOUNTER 2023-07-03 17:39 | Outpatient (CLI) | payer OTHER, SELFPAY ==
[2023-07-03 19:09] LABS: Total Volume, Urine 2000 mL
== END 2023-07-03 17:40 | disposition home or self-care (01) ==
PROVIDERS: PCP Family Medicine; Visit Provider Family Medicine
DX: O26.899 Other specified pregnancy related conditions, unspecified trimester (principal); R03.0 Elevated blood-pressure reading, without diagnosis of hypertension; Z3A.00 Weeks of gestation of pregnancy not specified
CPT/HCPCS: 84156

== ENCOUNTER 2023-07-07 06:21 | Inpatient (IN) | payer OTHER, SELFPAY ==
[2023-07-07] VITALS (71 sets, daily range): BP systolic 116–188; BP diastolic 61–96; PULSE 76–123; RESP 16–18; TEMP 36.3–36.7; O2SAT 89–100; BMI 43.4
[2023-07-07 07:43] LABS: Basophils # 0.1 10^3/uL (0.0-0.1); Basophils % 0.6 %; Eosinophils % 0.3 %; Hematocrit 33.8 % (36-47); Lymphocytes # 1.7 10^3/uL (0.8-4.8); Lymphocytes % 19.4 %; Mean Corpuscular HGB Conc 33.1 g/dL (30-55); Mean Corpuscular Hemoglobin 27.4 pg (27-33); Mean Corpuscular Volume 82.6 fl (85-98); Mean Platelet Volume 10.8 fL (7.4-10.4); Monocytes # 0.5 10^3/uL (0.2-0.9); Monocytes % 5.6 %; Neutrophils # 6.25 10^3/uL (1.8-7.7); Neutrophils % 69.8 %; Nucleated Red Blood Cells % 0 %; Platelet Count 159 10^3/cmm (157-399); Red Blood Count 4.09 10^6/uL (3.85-5.65); Red Cell Distribution Width 14.6 % (12.1-15.1); White Blood Count 8.94 10^3/uL (3.29-11.43)
[2023-07-07 07:58] LABS: Alanine Aminotransferase 7 U/L (0-33); Albumin Level 3.6 g/dL (3.5-5.2); Alkaline Phosphatase 119 U/L (35-105); Blood Urea Nitrogen 7 mg/dL (6-20); Carbon Dioxide 21 mmol/L (22-29); Chloride 105 mmol/L (98-107); Globulin 2.6 g/dL (1.3-4.6); Glucose 84 mg/dL (65-115); Osmolality Calculated 279 mOsm/kg (285-295); Sodium 136 mmol/L (136-145); Total Bilirubin 0.3 mg/dL (0.15-1.2); Total Protein 6.2 g/dL (6.6-8.7); Uric Acid 4.6 mg/dL (2.4-5.7)
[2023-07-07 08:00] LABS: Anion Gap 14.4 (5-19); Aspartate Amino Transferase 16 U/L (0-32); Potassium 4.4 mmol/L (3.5-5.1)
[2023-07-07 08:03] LABS: Magnesium 1.8 mg/dL (1.7-2.3)
--- NOTE | 2023-07-07 08:04 | P.HP_ITS ---
Providers/Chief Complaint Admitting Physician: Navjot Johnson MD Primary Care Provider: Navjot Johnson MD Chief Complaint: Induction History of Present Illness Gamal Fuentes is a 27 y/o @ 40.2 weeks by LMP c/w 8 wk US. Preg c/b h/o gHTN, vaping during 1st TM, Migraines, low K/Mg during 3rd TM. The patient presents to labor and delivery for a scheduled induction of labor due to postdates. The patient's cervix is dilated to 4 cm upon admission. The patient has had a few sporadic contractions, however none significant. She denies any leakage of fluid or vaginal bleeding at home. The patient has chest pain, cough, shortness of breath, nausea, vomiting, diarrhea, constipation, dysuria, fever. Medications/Allergies Home Medications Medication Instructions Recorded Confirmed Last Taken Type prenat.vits,santosh,ekd-mjnm-pamzi 1 tab PO DAILY 11/16/22 07/07/23 07/06/23 22:00 History cam boot #1 ea 02/10/23 07/02/23 Unknown Rx ferrous sulfate 325 mg (65 mg 325 mg PO BID #60 tabs 06/14/23 07/07/23 07/06/23 22:00 Rx iron) tablet magnesium oxide 400 mg PO BID #60 tabs 06/14/23 07/07/23 07/06/23 22:00 Rx potassium chloride 10 mEq 20 meq PO BID #120 tabs 06/14/23 07/07/23 07/06/23 22:00 Rx tablet,extended release (Klor-Con) Allergies Allergy/AdvReac Type Severity Reaction Status Date / Time banana Allergy ALGY-Anaphy Verified 03/04/23 08:15 laxis PFSH Acute PFSH: Medical History Back fracture Migraines Surgical History Hx of tonsillectomy Family History Grandmother Cancer, Onset Age: 54 lung COPD (chronic obstructive pulmonary disease) Social History Smoking and tobacco/nicotine status: current every day tobacco/nicotine user e- cigarettes Alcohol intake: never Substance/Drug Use: never 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 Reproductive History: : 2 Para: 1 Vitals/I&O/Wt Last Vital Signs Temp 98.1 F 07/07/23 06:51 Pulse 88 07/07/23 07:42 Resp 16 07/07/23 06:23 BP 135/84 07/07/23 07:42 Weight last 48 hrs Weight 253 lb Physical Exam Narrative: General: Alert and oriented x3 Eyes: Pupils equal round and reactive to light and accommodation Mouth: Mucous membranes moist, pharynx non-erythematous Cardiac: Regular rate and rhythm without murmurs Lungs: Clear to auscultation bilaterally without wheezes, crackles or rhonchi Abdomen: Soft, non-tender, fundus consistent with gestational age Extremities: +1 pitting edema in the bilateral lower extremities Data 07/07/23 07:00 07/07/23 06:56 A&P Assessment and plan (1) Supervision of normal intrauterine in multigravida: Patient presents for induction of labor. We will start her on IV Pitocin. heart tones are currently in the mid 130s with moderate variability good accelerations with a category 1 tracing. Contractions are every 5 to 7 minutes. The patient does not note significant pain with these. She is GBS negative. She is unsure about getting an epidural or not at this point. She may have a laboring epidural if she would like. Magnesium levels are pending. Potassium levels are in normal range. She had a couple of elevated blood pressures upon admission while getting her blood drawn, however outside of this they have been in the 130s. 24-hour urine protein was 120 this weekend. No signs of preeclam psia at this point. All questions were answered. Proceed with induction of labor. The patient and her significant other are in agreement with current plan of care. Attestations Medical Necessity Statement*: The patient will be here for greater than 2 midnights due to routine intrapartum and management of labor and delivery. Coding Level of Care Code Acute Code for Chg Fwd Diagnoses Supervision of normal intrauterine in multigravida Z34.80
[2023-07-07] MEDS: dextrose 5%-lactated ringers 1,000 ML 125 ML IV (08:21)
[2023-07-07] MEDS: oxytocin 30 UNIT/500 ML BAG IV (08:22)
[2023-07-07] MEDS: lactated ringers 1,000 ML 999 ML IV ×2 (18:00→19:05)
[2023-07-07] MEDS: ROPivacaine syringe 100 MG/50 ML SYRINGE 10 MG EPIDURAL ×2 (19:20→22:30)
--- NOTE | 2023-07-07 19:35 | ANES.PREANE2 ---
Pre-Anesthetic Assessment Height/Weight: Height 1.63 m Weight 114.759 kg Temp Pulse Resp BP Pulse Ox O2 Del Method 97.3 F L 90 16 138/69 99 Room Air 07/07/23 12:23 07/07/23 19:33 07/07/23 18:56 07/07/23 19:33 07/07/23 19:26 07/07/23 06:24 Preop Diagnosis: Active Labor Labor Epidural Familial anesthetic complications: None Last intake: 0500- toast clears- current Social Tobacco (vapes) Exam alert, oriented x 3 and clear to auscultation bilaterally Airway Submandibular: within normal limits Cervical ROM: within normal limits Mallampati: Class II Dentition: full History/ROS No significant history except as noted Pulmonary None reported CV/HEM Hypertension None reported Hepatic None reported GI Gastroesophageal Reflux Disease Metabolic None reported Musc/skel None reported Neuropsych None reported Anesthetic Plan ASA status: 2 Anesthesia: Regional (specify below) Other: Labor Epidural Medications/Allergies Home Medications Medication Instructions Recorded Confirmed Last Taken Type prenat.vits,santosh,pre-idvz-kgvtp 1 tab PO DAILY 11/16/22 07/07/23 07/06/23 22:00 History cam boot #1 ea 02/10/23 07/02/23 Unknown Rx ferrous sulfate 325 mg (65 mg 325 mg PO BID #60 tabs 06/14/23 07/07/23 07/06/23 22:00 Rx iron) tablet magnesium oxide 400 mg PO BID #60 tabs 06/14/23 07/07/23 07/06/23 22:00 Rx potassium chloride 10 mEq 20 meq PO BID #120 tabs 06/14/23 07/07/23 07/06/23 22:00 Rx tablet,extended release (Klor-Con) Allergies Allergy/AdvReac Type Severity Reaction Status Date / Time banana Allergy ALGY-Anaphy Verified 03/04/23 08:15 laxis Current Medications Generic Name Dose Route Start Last Admin Trade Name Freq PRN Reason Stop Dose Admin Lactated Ringer's 1,000 mls @ 999 mls/hr 07/07/23 06:22 07/07/23 19:05 Lactated Ringers IV 999 mls/hr .Q1H1M PRN Administration BLEEDING Dextrose/Lactated Ringer's 1,000 mls @ 125 mls/hr 07/07/23 06:30 07/07/23 17:59 Dextrose 5%-Lactated Ringers IV Infused .Q8H JORGE Infusion Oxytocin 30 unit in 500 mls @ 1 mls/hr 07/07/23 07:30 07/07/23 18:05 Pitocin IV 20 milliunit/min .Q24H JORGE 20 mls/hr Titration Protocol 1 MILLIUNIT/MIN Additional Medication Information [facility] Medical History Back fracture Migraines Surgical History Hx of tonsillectomy Family History Grandmother Cancer, Onset Age: 54 lung COPD (chronic obstructive pulmonary disease) Social History Smoking and tobacco/nicotine status: current every day tobacco/nicotine user e-cigarettes Alcohol intake: never Substance/Drug Use: never 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 Reproductive History : 2 Para: 1 Data Anesthesia 07/07/23 07:00 07/07/23 06:56 Short CBC 07/07/23 Range/Units 07:00 WBC 8.94 (3.29-11.43) 10^3/uL Hgb 11.20 L (11.27-16.99) g/dL Hct 33.8 L (36-47) % MCV 82.6 L (85-98) fl Plt Count 159 (157-399) 10^3/cmm Neut % (Auto) 69.8 % Neut # (Auto) 6.25 (1.8-7.7) 10^3/uL BMP 07/07/23 06:56 Sodium 136 Potassium 4.4 Chloride 105 Carbon Dioxide 21 L BUN 7 Creatinine 0.5 Glucose 84 Calcium 9.0 Liver Function 07/07/23 Range/Units 06:56 Total Bilirubin 0.3 (0.15-1.2) mg/dL AST 16 (0-32) U/L ALT 7 (0-33) U/L Alkaline Phosphatase 119 H (35-105) U/L Albumin 3.6 (3.5-5.2) g/dL Blood Bank 11/08/23 07:00 Blood Type A Positive Rho(D) Type Rh positive Antibody Screen Negative Cardiac Studies: No Data to Display Anesthesia Procedures Epidural Time Out Performed: Yes Consent: from patient, risks and benefits reviewed and patient agrees to proceed Lumbar Level: L4-L5 Epidural position: sitting Epidural procedure: sterile prep of area, 1% lidocaine to numb the area, negative for paresthesia passed, test dose given, 1.5% xylocaine 1:200k epi, placed PCEA, no systemic response, sterile dressing applied, L.U.D. no apparent complications and 0.2% Ropiavacaine @ mls/hr (10) Additional Comments: Successful on 3rd attempt PASCUAL at 6.5cm catheter threaded to 13cm.
[2023-07-07] MEDS: calcium carbonate 500 mg Chew Tablet 1000 MG PO (21:04)
--- NOTE | 2023-07-07 23:19 | PM.DELIVERY ---
Delivery Note: Date of delivery: July 07, 2023 Pre-delivery diagnoses: 1. Intrauterine at 40.2 weeks gestation 2. History of gestational hypertension 3. Vaping during first trimester 4. Migraines 5. Low potassium and magnesium during third trimester 6. Meconium stained fluid Post-delivery diagnoses: 1. Intrauterine status post spontaneous vaginal delivery at 40.2 weeks gestation 2. History of gestational hypertension 3. Vaping during first trimester 4. Migraines 5. Low potassium and magnesium during third trimester 6. Meconium stained fluid 7. Nuchal cord x2 8. Delivery of healthy infant female weighing 8 pounds 11 ounces with Apgars of 8 and 9 Procedure: Spontaneous vaginal delivery Delivering Physician: Navjot Johnson MD Estimated blood loss (mL): 200 Findings: 1. Healthy infant female weighing 8 pounds 11 ounces with Apgars of 8 and 9 2. Intact placenta with central umbilical cord insertion site 3. Nuchal cord x2 Pre-Delivery Course: Gamal Fuentes is a 27 y/o G2 now P2 status post spontaneous vaginal delivery @ 40.2 weeks by LMP c/w 8 wk US. Preg was c/b h/o gHTN, vaping during 1st TM, Migraines, low K/Mg during 3rd TM. The patient presented to labor and delivery for a scheduled induction of labor due to postdates.? The patient's cervix was dilated to 4 cm upon admission.? She was started on IV Pitocin and made very slow change. She had regular contractions, however the 's head was not in the OA position, so there was not good descent. Finally at 1735 on 07/07/2023 the 's head was well applied to the cervix and AROM was performed. Meconium stained fluid was noted. The infant's head continued to be asynclitic. The patient received a laboring epidural. Multiple maneuvers were done to try and get the baby to move into the OA positioning and eventually this took place. The patient was complete by 2226 on 07/07/2023. Delivery: The patient began pushing at 2236 on 07/07/2023. The patient pushed well. The epidural gave good anesthesia. The infant delivered in the OA position at 2254. There was a nuchal cord x2 that was reduced prior to delivery of the 's body. The left shoulder was anterior shoulder and it delivered with ease. The rest the infant delivered with ease. The 's mouth and nose were bulb suctioned by myself. The began crying shortly after delivery. The infant was placed on the mother's chest where the nurses were waiting to care for her. The cord was clamped by myself after approximately 1 minute and cut by the infant's father. Cord blood was obtained. The cord was then drained of blood and traction was placed on umbilical cord. Uterine massage was carried out and the placenta delivered at 2259 on 07/07/2023. The placenta was noted to be intact with a central umbilical cord insertion site. The cervix was inspected and no lacerations were noted. The vaginal wall was inspected and no lacerations were noted. The patient initially had moderate bleeding that has since decreased to light bleeding. This improved with IV Pitocin bolus and uterine massage alone. Currently both the mother and infant are doing well. History History History 2 Term 2 0 Miscarriages/Ectopic 0 Living Children 2 Past Pregnancies Del. Date GA/Weeks Outcome Route Wt Inf Gender Labor Lgth Comp. Anesthesia Location 11/20/14 39 live - full term Vaginal Male [facility] 07/07/23 40 live - full term Vaginal 8 lb 11 oz Female [facility] hr [facility] Delivery Date: 11/20/14 Last Updated by: Navjot Johnson MD gHTN, Hypokalemia, Hypomagnesemia Delivery Date: 07/07/23 Last Updated by: Navjot Johnson MD Low potassium and magnesium in third trimester A&P Assessment and plan (1) Spontaneous vaginal delivery: Coding Level of Care Code Acute Code for Chg Fwd Diagnoses Spontaneous vaginal delivery O80
[2023-07-07] MEDS: oxytocin 30 UNIT/500 ML BAG 600 UNIT IV (23:20)
[2023-07-08] VITALS (13 sets, daily range): BP systolic 106–150; BP diastolic 60–95; PULSE 88–112; RESP 16; TEMP 36.6–36.8; O2SAT 97–99
[2023-07-08] MEDS: ibuprofen 800 mg tablet PO ×4 (00:08→20:10)
[2023-07-08] MEDS: prenatal vitamin Capsule 1 CAP PO (08:13)
[2023-07-08] MEDS: docusate sodium 100 mg Capsule PO ×2 (08:14→16:28)
--- NOTE | 2023-07-08 10:06 | ANE.PACU2 ---
Inpatient post-anesthesia follow up: Airway intact: Yes Vital signs: Temperature 98.0 F Pulse Rate 94 Respiratory Rate 16 Blood Pressure 137/93 Pulse Oximetry 99 Oxygen Delivery Me thod Room Air Oxygen Flow Rate Fraction of Inspir ed Oxygen Hydration adequate: Yes Nausea and vomiting: No Pain level: 2 Mental status: Baseline Additional Comments: Anes start 07/07/23 0893 Anes end 07/07/23 7927
[2023-07-08 11:48] LABS: Hematocrit 30.1 % (36-47); Mean Corpuscular HGB Conc 32.6 g/dL (30-55); Mean Corpuscular Hemoglobin 26.9 pg (27-33); Mean Corpuscular Volume 82.7 fl (85-98); Mean Platelet Volume 10.8 fL (7.4-10.4); Platelet Count 145 10^3/cmm (157-399); Red Blood Count 3.64 10^6/uL (3.85-5.65); Red Cell Distribution Width 14.6 % (12.1-15.1); White Blood Count 9.69 10^3/uL (3.29-11.43)
--- NOTE | 2023-07-08 17:22 | PM.PN ---
Subjective Subjective: The patient is doing well at this time. She is ambulating, voiding, passing gas and tolerating food by mouth. Her pain is well controlled. Her bleeding is doing well. She states that she feels well. Vitals/I&O/Wt Last Vital Signs Temp 98.0 F 07/08/23 09:40 Pulse 88 07/08/23 09:40 Resp 16 07/08/23 09:40 BP 142/92 07/08/23 09:40 Pulse Ox 97 07/08/23 09:40 O2 Del Method Room Air 07/08/23 09:40 07/08/23 07/08/23 07/08/23 06:59 14:59 22:59 Intake Total 500 / 2829.050 Output Total 600 / 600 Balance -100 / 2229.050 Weight last 48 hrs Weight 253 lb Physical Exam Narrative: General: Alert and oriented x3 Cardiac: Regular rate and rhythm without murmurs Lungs: Clear to auscultation bilaterally without wheezes, crackles or rhonchi Abdomen: Soft, mild tenderness over uterus. The uterus is firm and 2 cm below the umbilicus. Extremities: Trace edema in the bilateral lower extremities Urinary Catheter Management: Chandra: Cath Placed During This Visit: yes, but has since been removed by the nurse Reason for Continuing Indwelling Catheter: Chronic Indwelling Urinary Catheter on Admission Urinary Catheter Date of Insertion: 07/07/23 Urinary Catheter Time of Insertion: 20:05 Date Urinary Catheter Removed: 07/07/23 Time Urinary Catheter Discontinued: 22:30 Data 07/08/23 11:35 07/07/23 06:56 A&P Assessment and plan (1) Spontaneous vaginal delivery: The patient is doing well currently. Her blood pressures are mildly elevated in the 130s to 140s over 80s to 90s. She is asymptomatic with these. We will continue to keep an eye on them in general, however I suspect that they will self resolve. We will plan for discharge home tomorrow as long as she continues to do well. Attestations Medical Necessity Statement*: The patient will be here for greater than 2 midnights due to routine intrapartum and management of labor and delivery. Coding Level of Care Code Acute Code for Chg Fwd Diagnoses Spontaneous vaginal delivery O80
[2023-07-08] MEDS: calcium carbonate 500 mg Chew Tablet 1000 MG PO (21:58)
[2023-07-09 04:20] VITALS: BP 132/85; PULSE 94; RESP 16; TEMP 36.8; O2SAT 99
--- NOTE | 2023-07-09 06:33 | PM.DCS ---
Discharge Providers Date of Admission: 07/07/23 06:21 Date of Discharge: July 09, 2023 Attending Provider at Admission: Navjot Johnson MD Attending Provider at Discharge: Navjot Johnson MD Primary Care Provider: Navjot Johnson MD Diagnoses at Discharge Discharge Diagnosis (1) Spontaneous vaginal delivery: Status: Acute Other Information Additional DC diagnoses/information: 1.? Intrauterine status post spontaneous vaginal delivery at 40.2 weeks gestation 2.? History of gestational hypertension 3.? Vaping during first trimester 4.? Migraines 5.? Low potassium and magnesium during third trimester 6.? Meconium stained fluid 7.? Nuchal cord x2 8.? Delivery of healthy female weighing 8 pounds 11 ounces with Apgars of 8 and 9 Reason for Visit Reason for Visit: Induction Brief History: Gamal Fuentes is a 27 y/o G2 now P2 status post spontaneous vaginal delivery @ 40.2 weeks by LMP c/w 8 wk US. Preg was c/b h/o gHTN, vaping during 1st TM, Migraines, low K/Mg during 3rd TM. Hospital Course Hospital Course The patient presented to labor and delivery for a scheduled induction of labor due to postdates.? The patient's cervix was dilated to 4 cm upon admission.? She was started on IV Pitocin and made very slow change.? She had regular contractions, however the 's head was not in the OA position, so there was not good descent.? Finally at 1735 on 07/07/2023 the 's head was well applied to the cervix and AROM was performed.? Meconium stained fluid was noted.? The infant's head continued to be asynclitic.? The patient received a laboring epidural.? Multiple maneuvers were done to try and get the baby to move into the OA positioning and eventually this took place.? The patient was complete by 7 on 07/07/2023. The patient began pushing at 2236 on 07/07/2023.? The patient pushed well.? The epidural gave good anesthesia.? The delivered in the OA position at 2254.? There was a nuchal cord x2 that was reduced prior to delivery of the 's body.? The left shoulder was anterior shoulder and it delivered with ease.? The rest the infant delivered with ease.? The 's mouth and nose were bulb suctioned by myself.? The began crying shortly after delivery.? The infant was placed on the mother's chest where the nurses were waiting to care for her.? The cord was clamped by myself after approximately 1 minute and cut by the infant's father.? Cord blood was obtained.? The cord was then drained of blood and traction was placed on umbilical cord.? Uterine massage was carried out and the placenta delivered at 2259 on 07/07/2023.? The placenta was noted to be intact with a central umbilical cord insertion site.? The cervix was inspected and no lacerations were noted.? The vaginal wall was inspected and no lacerations were noted.? The patient initially had moderate bleeding that has since decreased to light bleeding.? This improved with IV Pitocin bolus and uterine massage alone. the patient has done well overall. Her bleeding has decreased well. She is ambulating, voiding, passing gas and tolerating food by mouth. Her pain is well controlled. Her blood pressure has been gradually increasing and is occasionally in the 150/100 range. She is asymptomatic with this. We will discharge her with labetalol to take 50 mg twice a day as needed for blood pressures over 150/100. She is to let me know if her blood pressures are increasing be on this as well. The patient does have increased swelling today and she was advised to use compression socks at home. She is to keep her overall activity levels down for the next 1 to 2 weeks as she recovers from delivery. Routine discharge instructions were discussed and all questions were answered. The patient and her significant other are in agreement with discharge home at this time. Physical Exam Narrative: General: Alert and oriented x3 Cardiac: Regular rate and rhythm without murmurs Lungs: Clear to auscultation bilaterally without wheezes, crackles or rhonchi Abdomen: Soft, mild tenderness over uterus. The uterus is firm and 1 cm below the umbilicus. Extremities: +2 pitting edema in the bilateral lower extremities Urinary Catheter Management: Chandra: Cath Placed During This Visit: yes, but has since been removed by the nurse Reason for Continuing Indwelling Catheter: Chronic Indwelling Urinary Catheter on Admission Urinary Catheter Date of Insertion: 07/07/23 Urinary Catheter Time of Insertion: 20:05 Date Urinary Catheter Removed: 07/07/23 Time Urinary Catheter Discontinued: 22:30 Discharge Data Studies Completed and Pending Laboratory Results WBC 9.69 10^3/uL (3.29-11.43) 07/08/23 11:35 RBC 3.64 10^6/uL (3.85-5.65) L 07/08/23 11:35 Hgb 9.80 g/dL (11.27-16.99) L 07/08/23 11:35 Hct 30.1 % (36-47) L 07/08/23 11:35 MCV 82.7 fl (85-98) L 07/08/23 11:35 MCH 26.9 pg (27-33) L 07/08/23 11:35 MCHC 32.6 g/dL (30-55) 07/08/23 11:35 RDW 14.6 % (12.1-15.1) 07/08/23 11:35 Plt Count 145 10^3/cmm (157-399) L 07/08/23 11:35 MPV 10.8 fL (7.4-10.4) H 07/08/23 11:35 Neut % (Auto) 69.8 % 07/07/23 07:00 Lymph % (Auto) 19.4 % 07/07/23 07:00 [place] % (Auto) 5.6 % 07/07/23 07:00 Eos % (Auto) 0.3 % 07/07/23 07:00 Baso % (Auto) 0.6 % 07/07/23 07:00 Neut # (Auto) 6.25 10^3/uL (1.8-7.7) 07/07/23 07:00 Lymph # (Auto) 1.7 10^3/uL (0.8-4.8) 07/07/23 07:00 [place] # (Auto) 0.5 10^3/uL (0.2-0.9) 07/07/23 07:00 Eos # (Auto) 0.0 10^3/uL (0.0-0.8) 07/07/23 07:00 Baso # (Auto) 0.1 10^3/uL (0.0-0.1) 07/07/23 07:00 Nucleated RBC % (auto) 0 % 07/07/23 07:00 Nucleated RBCs # 0.0 /100WBC 07/07/23 07:00 Sodium 136 mmol/L (136-145) 07/07/23 06:56 Potassium 4.4 mmol/L (3.5-5.1) 07/07/23 06:56 Chloride 105 mmol/L (98-107) 07/07/23 06:56 Carbon Dioxide 21 mmol/L (22-29) L 07/07/23 06:56 Anion Gap 14.4 (5-19) 07/07/23 06:56 BUN 7 mg/dL (6-20) 07/07/23 06:56 Creatinine 0.5 mg/dL (0.5-0.9) 07/07/23 06:56 GFR Calculation 148.0 mL/min (90-130) H 07/07/23 06:56 Glucose 84 mg/dL (65-115) 07/07/23 06:56 Calculated Osmolality 279 mOsm/kg (285-295) L 07/07/23 06:56 Uric Acid 4.6 mg/dL (2.4-5.7) 07/07/23 06:56 Calcium 9.0 mg/dL (8.5-10.5) 07/07/23 06:56 Magnesium 1.8 mg/dL (1.7-2.3) 07/07/23 06:56 Total Bilirubin 0.3 mg/dL (0.15-1.2) 07/07/23 06:56 AST 16 U/L (0-32) 07/07/23 06:56 ALT 7 U/L (0-33) 07/07/23 06:56 Alkaline Phosphatase 119 U/L (35-105) H 07/07/23 06:56 Total Protein 6.2 g/dL (6.6-8.7) L 07/07/23 06:56 Albumin 3.6 g/dL (3.5-5.2) 07/07/23 06:56 Globulin 2.6 g/dL (1.3-4.6) 07/07/23 06:56 Blood Type A Positive 07/07/23 07:00 Rho(D) Type Rh positive 07/07/23 07:00 Antibody Screen Negative 07/07/23 07:00 Vitals Last Vital Signs Temp 98.3 F 07/09/23 04:20 Pulse 94 07/09/23 04:20 Resp 16 07/09/23 04:20 BP 132/85 07/09/23 04:20 Pulse Ox 99 07/09/23 04:20 O2 Del Method Room Air 07/08/23 22:30 Discharge Plan Discharge Patient Disposition: Home Condition: Stable Prescriptions: New ibuprofen 800 mg Tablet 800 mg PO TID Qty: 60 0RF labetalol 100 mg tablet 50 mg PO BID PRN (Reason: hypertension) Qty: 30 2RF Rx Instructions: Take 1/2 tab PO BID if SBP>150 or DBP>100 Continued prenat.vits,santosh,iaa-ggaf-yhcqk Tablet 1 tab PO DAILY potassium chloride [Klor-Con 10] 10 mEq tablet extended release 20 meq PO BID Qty: 120 6RF magnesium oxide 400 mg magnesium tablet 400 mg PO BID Qty: 60 3RF ferrous sulfate 325 mg (65 mg iron) tablet 325 mg PO BID Qty: 60 3RF No Action (DME) cam boot See Rx Instructions .Route .MEDSUPPLY Qty: 1 0RF Rx Instructions: As directed Discharge Orders: Discharge Order (Routine); Ordered 07/09/23 Ordered By: Navjot Johnson Referrals: Navjot Johnson MD [Primary Care Provider] - 2 weeks Discharge Diet: Regular Discharge Activity: Limit activity as instructed Patient Instructions: Depression (DC), Bleeding (DC), Preeclampsia and Eclampsia After Delivery (GEN), Hemorrhage (GEN), OB Discharge Report, OB Food/Drug Interaction Guide, Opioid Safety, OB [facility], OB Vaginal Deliveries Activity Restrictions/Additional Instructions: Nothing per vagina for 6 weeks. I would recommend showers instead of baths for the first 6 weeks. Continue to take your potassium and magnesium for the next 2 weeks. We will recheck your blood pressure and electrolytes at 2 weeks to see if the supplements are still needed. Continue to take your vitamin daily. Take labetalol 50 mg twice a day if you are blood pressure is over 150 on the top number or 100 on the bottom number. If your blood pressure is getting above 160/[address] Johnson's office for further instructions. Discharge Attestations Time Spent in Discharge Care*: greater than 30 min Quality Metrics Clinical Quality Measures [ No reported AMI, CVA or VTE this stay] Coding Level of Care Code Acute Code for Chg Fwd Diagnoses Spontaneous vaginal delivery O80
[2023-07-09] MEDS: prenatal vitamin Capsule 1 CAP PO (08:46)
[2023-07-09] MEDS: docusate sodium 100 mg Capsule PO (08:46)
[2023-07-09] MEDS: ibuprofen 800 mg tablet PO (08:47)
[2023-07-09 09:00] VITALS: BP 150/92; PULSE 100; RESP 18; TEMP 37; O2SAT 98
[2023-07-09 09:45] VITALS: BP 150/92; PULSE 100; RESP 18; TEMP 37; O2SAT 98
== END 2023-07-09 09:48 | disposition home or self-care (01) | DRG 807 ==
LOC: OPOB 06:23 → OBGYN 06:23
PROVIDERS: Admitting Provider Family Medicine; PCP Family Medicine; Visit Provider Family Medicine
DX: O48.0 Post-term pregnancy (principal); Z37.0 Single live birth; Z3A.40 40 weeks gestation of pregnancy; O99.334 Smoking (tobacco) complicating childbirth; F17.290 Nicotine dependence, other tobacco product, uncomplicated; O77.0 Labor and delivery complicated by meconium in amniotic fluid; O69.81X0 Labor and delivery complicated by cord around neck, without compression, not applicable or unspecified; O75.89 Other specified complications of labor and delivery; E87.6 Hypokalemia; E83.42 Hypomagnesemia; G43.909 Migraine, unspecified, not intractable, without status migrainosus
CPT/HCPCS: 36415; 51702; 59025; 59409; 80053; 83735; 84550; 85025; 85027; 86850; 86900; 99211; J2590; J2795; J7120; J7121

== ENCOUNTER → 2023-12-01 09:48 | Outpatient (BNVA) | payer OTHER, SELFPAY | PROVIDERS: PCP Family Medicine; Visit Provider Family Medicine | DX: R53.81 Other malaise (principal); R53.83 Other fatigue; E03.9 Hypothyroidism, unspecified | CPT/HCPCS: 80048; 83735; 84439; 84443; 85025 ==

== ENCOUNTER → 2025-03-07 11:47 | Outpatient (BNVA) | payer BC, SELFPAY | PROVIDERS: PCP Family Medicine; Visit Provider Family Medicine | DX: Z00.00 Encounter for general adult medical examination without abnormal findings (principal); Z51.81 Encounter for therapeutic drug level monitoring; E03.9 Hypothyroidism, unspecified; E55.9 Vitamin D deficiency, unspecified; E53.8 Deficiency of other specified B group vitamins; Z13.6 Encounter for screening for cardiovascular disorders | CPT/HCPCS: 80053; 80061; 82306; 82607; 84439; 84443; 85025 ==

== ENCOUNTER 2025-06-12 10:55 | Outpatient (CLI) | payer BC, MEDICAID, SELFPAY ==
--- NOTE | 2025-06-12 11:00 | MR_ITS ---
WS: [id number] MRI HEAD WITH CONTRAST TECHNIQUE: Sagittal T1, T2 axial, T2 axial FLAIR, axial susceptibility weighted imaging, axial diffusion weighted images, and coronal T2 images were obtained. Pre and post-T1 axial and post T1 coronal images. ADC and FSPGR images. CLINICAL INFORMATION: Trigeminal neuralgia COMPARISON: None. FINDINGS: No evidence of restricted diffusion to suggest acute ischemia. Ventricular system and basilar cisterns are patent. No suspicious intracranial signal abnormalities. No hydrocephalus. Normal posterior fossa. Normal vascular flow voids at the skull base. No extra-axial fluid collections. Paranasal sinuses and mastoid air cells are well aerated. No hemosiderin. Normal optic chiasm and pituitary infundibulum. No abnormal gadolinium enhancement. MR/MR head wo/w con [id number] IMPRESSION: 1. No evidence of restricted diffusion to suggest acute ischemia. 2. No suspicious intracranial signal abnormalities. 3. No abnormal gadolinium enhancement. 4. No hemosiderin on the susceptibly weighted images.
[2025-06-12] MEDS: gadobenate dimeglumine 20 mL vial IV (12:11)
== END 2025-06-12 10:56 | disposition home or self-care (01) ==
LOC: RAD 10:59
PROVIDERS: PCP Family Medicine; Visit Provider Family Medicine
DX: G50.0 Trigeminal neuralgia (principal); G43.909 Migraine, unspecified, not intractable, without status migrainosus
CPT/HCPCS: 70553